=== PATIENT | female | born 1965 | race African-American/Black ===

== ENCOUNTER 2023-03-22 11:31 | Outpatient (REF) | payer OTHER, SELFPAY | END 2023-03-22 11:32 | disposition home or self-care (01) | LOC: HO.10HDL 11:31 | PROVIDERS: Visit Provider Otolaryngology | DX: J30.89 Other allergic rhinitis (principal) | CPT/HCPCS: 36415; 82785; 86003 ==

== ENCOUNTER 2025-05-21 09:38 | Outpatient (AMB) | payer OTHER, SELFPAY | END 2025-05-21 10:01 | disposition home or self-care (01) | LOC: HO.HMGAL 09:38 | PROVIDERS: PCP Physician Assistant; Visit Provider Registered Nurse Emergency | DX: J30.89 Other allergic rhinitis (principal) | CPT/HCPCS: 95117; 95165 ==

== ENCOUNTER 2025-06-11 08:25 | Outpatient (AMB) | payer OTHER, SELFPAY | END 2025-06-11 09:02 | disposition home or self-care (01) | LOC: HO.HMGAL 08:25 | PROVIDERS: PCP Physician Assistant; Visit Provider Registered Nurse Emergency | DX: J30.89 Other allergic rhinitis (principal) | CPT/HCPCS: 95117; 95165 ==